=== PATIENT | female | born 1935 | race Two or more races ===

== ENCOUNTER 2016-12-04 15:18 | Inpatient (IN) | payer OTHER ==
[~2016-12-04] VITALS: Ht 152.4 cm; Wt 37.6 kg
[2016-12-04 19:05] LABS: BASOPHIL % 0.4 % (0-2); PLATELET COUNT 250 x10^3mcL (130-400); RED CELL DISTRIBUTION WIDTH 13.6 % (11.5-14.5)
[2016-12-04 19:13] LABS: CALCIUM 9.1 mg/dL (8.5-10.1); CHLORIDE SERUM 101 mmol/L (98-107); CREATININE SERUM 0.8 mg/dL (0.6-1.0); GLUCOSE SERUM 85 mg/dL (74-106); POTASSIUM SERUM 3.9 mmol/L (3.5-5.1); SODIUM SERUM 142 mmol/L (136-145)
[2016-12-04 19:18] LABS: ALBUMIN 3.8 g/dL (3.4-5.0); ALKALINE PHOSPHATASE 39 U/L (46-116); ALT/SGPT 41 U/L (14-59); AST/SGOT 35 U/L (15-37); BILIRUBIN TOTAL 0.7 mg/dL (0.20-1.00); LIPASE 284 IU/L (73-393); TOTAL PROTEIN, SERUM 6.6 g/dL (6.4-8.2)
[2016-12-04] MEDS ORDERED: ONDANSETRON ODT8 M1 PO (19:48)
[2016-12-04] MEDS ORDERED: OMEPRAZOLE40 M1 PO (19:48)
[2016-12-04 21:45] LABS: MAGNESIUM 2.2 mg/dL (1.8-2.4)
[2016-12-04 21:49] LABS: CHOLESTEROL/HDL RATIO 3.9
[2016-12-04 21:53] LABS: T3 TOTAL 0.58 ng/mL
[2016-12-04 22:10] LABS: FREE T4 0.73 ng/dL (0.76-1.46); FREE THYROXINE INDEX 1.8 ug/dL (1.4-4.5); T4(THYROXINE) 5.9 ug/dL (4.7-13.3)
[2016-12-04 22:22] VITALS: BP 148/65
[2016-12-05 06:00] VITALS: BP 113/68
[2016-12-05 06:48] LABS: BASOPHIL % 0.5 % (0-2); PLATELET COUNT 219 x10^3mcL (130-400); RED CELL DISTRIBUTION WIDTH 13.4 % (11.5-14.5)
[2016-12-05 07:07] LABS: CALCIUM 8.2 mg/dL (8.5-10.1); CARBON DIOXIDE 25.3 mmol/L (21-32); CHLORIDE SERUM 104 mmol/L (98-107); CREATININE SERUM 0.7 mg/dL (0.6-1.0); MAGNESIUM 1.9 mg/dL (1.8-2.4); PHOSPHOROUS 3.2 mg/dL (2.5-4.9); POTASSIUM SERUM 3.6 mmol/L (3.5-5.1); SODIUM SERUM 141 mmol/L (136-145)
[2016-12-05 07:15] LABS: GLUCOSE SERUM 59 mg/dL (74-106)
[2016-12-05 07:45] VITALS: BP 142/51
[2016-12-05 11:33] LABS: UA SPECIFIC GRAVITY >=1.030 (1.005-1.035); microscopic required? YES; urine erythrocyte 1+ (NEGATIVE)
[2016-12-05 13:27] VITALS: BP 133/66
[2016-12-05 15:37] VITALS: BP 127/58
[2016-12-05 16:57] VITALS: Ht 152.4 cm; Wt 37.6 kg
[2016-12-05 19:51] VITALS: BP 132/59
[2016-12-05 21:46] VITALS: BP 139/60
[2016-12-06 05:56] VITALS: BP 140/69
[2016-12-06 06:34] LABS: BASOPHIL % 0.3 % (0-2); PLATELET COUNT 211 x10^3mcL (130-400); RED CELL DISTRIBUTION WIDTH 13.6 % (11.5-14.5)
[2016-12-06 06:50] LABS: CALCIUM 8.4 mg/dL (8.5-10.1); CARBON DIOXIDE 30.8 mmol/L (21-32); CHLORIDE SERUM 105 mmol/L (98-107); CREATININE SERUM 0.6 mg/dL (0.6-1.0); GLUCOSE SERUM 69 mg/dL (74-106); MAGNESIUM 1.8 mg/dL (1.8-2.4); PHOSPHOROUS 3.2 mg/dL (2.5-4.9); SODIUM SERUM 144 mmol/L (136-145)
[2016-12-06 07:07] LABS: POTASSIUM SERUM 2.8 mmol/L (3.5-5.1)
[2016-12-06 07:35] VITALS: BP 138/60
[2016-12-06 09:44] VITALS: BP 125/56
[2016-12-06 17:51] VITALS: BP 125/70
[2016-12-06 22:31] VITALS: BP 142/74
[2016-12-07 06:08] VITALS: BP 130/72
[2016-12-07 06:28] LABS: BASOPHIL % 0.5 % (0-2); PLATELET COUNT 188 x10^3mcL (130-400); RED CELL DISTRIBUTION WIDTH 13.5 % (11.5-14.5)
[2016-12-07 06:35] LABS: CALCIUM 8.2 mg/dL (8.5-10.1); CARBON DIOXIDE 33.9 mmol/L (21-32); CHLORIDE SERUM 105 mmol/L (98-107); CREATININE SERUM 0.6 mg/dL (0.6-1.0); GLUCOSE SERUM 112 mg/dL (74-106); MAGNESIUM 1.8 mg/dL (1.8-2.4); PHOSPHOROUS 2.8 mg/dL (2.5-4.9); SODIUM SERUM 142 mmol/L (136-145)
[2016-12-07 06:44] LABS: POTASSIUM SERUM 2.9 mmol/L (3.5-5.1)
[2016-12-07 10:15] VITALS: BP 134/71
[2016-12-07 15:03] VITALS: BP 116/49
[2016-12-07 18:21] VITALS: BP 131/68
[2016-12-07 22:30] VITALS: BP 98/51
[2016-12-08 05:44] VITALS: BP 116/64
[2016-12-08 06:09] LABS: CALCIUM 8.3 mg/dL (8.5-10.1); CARBON DIOXIDE 29.5 mmol/L (21-32); CHLORIDE SERUM 105 mmol/L (98-107); CREATININE SERUM 0.6 mg/dL (0.6-1.0); GLUCOSE SERUM 104 mg/dL (74-106); MAGNESIUM 1.7 mg/dL (1.8-2.4); PHOSPHOROUS 3.3 mg/dL (2.5-4.9); POTASSIUM SERUM 3.1 mmol/L (3.5-5.1); SODIUM SERUM 142 mmol/L (136-145)
[2016-12-08 06:22] LABS: BASOPHIL % 0.4 % (0-2); PLATELET COUNT 189 x10^3mcL (130-400); RED CELL DISTRIBUTION WIDTH 13.8 % (11.5-14.5)
[2016-12-08 09:08] VITALS: BP 130/68
[2016-12-08 17:42] VITALS: BP 118/60
[2016-12-08 19:45] VITALS: BP 115/53
[2016-12-09 06:04] VITALS: BP 117/56
[2016-12-09 06:29] LABS: BASOPHIL % 0.4 % (0-2); PLATELET COUNT 199 x10^3mcL (130-400); RED CELL DISTRIBUTION WIDTH 13.9 % (11.5-14.5)
[2016-12-09 06:41] LABS: CALCIUM 8.3 mg/dL (8.5-10.1); CARBON DIOXIDE 31.8 mmol/L (21-32); CHLORIDE SERUM 106 mmol/L (98-107); CREATININE SERUM 0.6 mg/dL (0.6-1.0); GLUCOSE SERUM 103 mg/dL (74-106); MAGNESIUM 2.7 mg/dL (1.8-2.4); POTASSIUM SERUM 3.4 mmol/L (3.5-5.1); SODIUM SERUM 142 mmol/L (136-145)
[2016-12-09 09:42] VITALS: BP 130/62
[2016-12-09 15:03] VITALS: BP 130/62
[2016-12-09] MEDS ORDERED: ROXD PO (17:38)
[2016-12-09 17:40] VITALS: BP 143/73
[2016-12-09] MEDS ORDERED: PHE25I IV (17:41)
[2016-12-09] MEDS ORDERED: ROC1I IM (17:42)
[2016-12-09] MEDS ORDERED: LAC30L PO (17:43)
[2016-12-09] MEDS ORDERED: ACETAMINOPHEN-H1 TA1 PO (17:43)
[2016-12-09] MEDS ORDERED: COL100 PO (17:44)
[2016-12-09] MEDS ORDERED: MIRUD PO (17:46)
[2016-12-09] MEDS ORDERED: PRI20 PO (17:47)
[2016-12-09] MEDS ORDERED: SEN PO (17:47)
[2016-12-09] MEDS ORDERED: REG10I IV (17:47)
[2016-12-09] MEDS ORDERED: LAC PO (17:48)
[2016-12-09] MEDS ORDERED: SYN25 PO (17:49)
[2016-12-09 19:10] VITALS: BP 139/66
[2016-12-10 05:40] VITALS: BP 126/60
[2016-12-10 06:06] LABS: PLATELET COUNT 192 x10^3mcL (130-400); RED CELL DISTRIBUTION WIDTH 13.9 % (11.5-14.5)
[2016-12-10 06:22] LABS: CALCIUM 8.2 mg/dL (8.5-10.1); CARBON DIOXIDE 30.2 mmol/L (21-32); CHLORIDE SERUM 107 mmol/L (98-107); CREATININE SERUM 0.6 mg/dL (0.6-1.0); GLUCOSE SERUM 101 mg/dL (74-106); MAGNESIUM 2.2 mg/dL (1.8-2.4); PHOSPHOROUS 3.8 mg/dL (2.5-4.9); SODIUM SERUM 143 mmol/L (136-145)
[2016-12-10 08:45] LABS: BAND NEUTROPHIL 1 % (0-10); BASOPHIL 0 % (0-2); MONOCYTE 5 % (0-7); SEGMENTED NEUTROPHILS 60 % (37-75)
[2016-12-10 08:47] LABS: PLATELET MORPHOLOGY PLATELETS NORMAL; acanthocyte (spur cell) 1+; burr cell (echinocyte) 1+; rbc morphology (normal/abnorm) ABNORMAL (NORMAL); schistocyte (helmet cell) 1+
[2016-12-10 09:27] VITALS: BP 125/65
[2016-12-10 17:04] VITALS: BP 130/62
[2016-12-10 17:19] VITALS: BP 119/76
[2016-12-10] MEDS ORDERED: LEVAQUIN250 M1 PO (17:28)
[2016-12-10] MEDS ORDERED: FLA250 PO (17:28)
[2016-12-10] MEDS ORDERED: GOOD SENSE OMEP20 MG PO (17:28)
[2016-12-10 21:06] VITALS: BP 114/59
== END 2016-12-10 22:38 | disposition hospice, home (50) | DRG 374 ==
LOC: ED 15:18 → DU 21:12 → MU 21:12 → DU 22:04 → MU 12-05 16:58
PROVIDERS: Emergency Medicine; Family Medicine; Internal Medicine Gastroenterology; ADMIT Family Medicine
PROC: 0DB68ZX Excision of Stomach, Via Natural or Artificial Opening Endoscopic, Diagnostic (ICD-10-PCS; principal; 2016-12-08 10:00)
PROC: 0D778ZZ Dilation of Stomach, Pylorus, Via Natural or Artificial Opening Endoscopic (ICD-10-PCS; 2016-12-08 10:00)
PROC: 05HF33Z Insertion of Infusion Device into Left Cephalic Vein, Percutaneous Approach (ICD-10-PCS; 2016-12-10)
PROC: B54NZZA Ultrasonography of Left Upper Extremity Veins, Guidance (ICD-10-PCS; 2016-12-10)
DX: C16.4 Malignant neoplasm of pylorus (principal); E43 Unspecified severe protein-calorie malnutrition; Z68.1 Body mass index [BMI] 19.9 or less, adult; K31.1 Adult hypertrophic pyloric stenosis; A04.8 Other specified bacterial intestinal infections; K56.41 Fecal impaction; D64.9 Anemia, unspecified; E78.5 Hyperlipidemia, unspecified; E02 Subclinical iodine-deficiency hypothyroidism
CPT/HCPCS: 43220; 43235; 82962; 83880; 84439; 88344; C1751; C1769; J0696; J1170; J1200; J1364; J1610; J1642; J1644; J2060; J2250; J2310; J2405; J2765; J3010; J3475; J3480; J3490; J7030; J7042; J7131; Q0092